=== PATIENT | female | born 1990 | race Caucasian/White ===

== ENCOUNTER 2020-02-18 10:48 | Emergency (ER) | payer OTHER, SELFPAY ==
[2020-02-18 10:50] VITALS: BP 138/91; PULSE 97; RESP 14; TEMP 36.9; O2SAT 98; BMI 34.5
--- NOTE | 2020-02-18 11:44 | ED.EXTPRO ---
HPI - Extremity Problem General Chief complaint: Extremity Problem,Nontraumatic Stated complaint: rt leg pain 1x week Time Seen by Provider: 02/18/20 11:44 Source: patient Mode of arrival: Ambulatory Limitations: no limitations History of Present Illness HPI Narrative: Patient is a 29-year-old female with no medical history presenting with right anterior leg pain. She says that she runs 3-5 miles on a regular basis last week she noticed she was having some lewis pain. She said it did not feel like her regular lewis splints. She has been resting icing and taking ibuprofen however it still feels some intermittent pain. She has no calf pain she has no redness or swelling. No shortness of breath. No prior history of DVT. She is concerned that she may have a blood clot. He has not had any recent travel head does not take any control. She did not change any shoes or running root MD Complaint: extremity pain Related Data Allergies Allergy/AdvReac Type Severity Reaction Status Date / Time No Known Drug Allergies Allergy Verified 02/18/20 10:54 Review of Systems Review of Systems Narrative: GENERAL: Denies chills,fever HEENT: Denies throat pain RESPIRATORY: Denies dyspnea, cough, wheezing CARDIOVASCULAR: Denies chest pain, palpitations GASTROINTESTINAL: Denies nausea, vomiting MUSCULOSKELETAL: See HPI SKIN: No rash, no laceration, no pruritus NEUROLOGIC: Denies weakness, dizziness, headache, numbness 8 point review of systems is negative except for those stated above and HPI Patient History Social History Smoking Status: Unknown if ever smoked Smoking Status: Unknown if ever smoked alcohol intake frequency: holidays/special occasions only Substance Use Type: does not use Exam Initial Vital Signs Initial Vital Signs: Vital Signs Temperature 98.5 F 02/18/20 10:50 Pulse Rate 97 H 02/18/20 10:50 Respiratory Rate 14 02/18/20 10:50 Blood Pressure 138/91 H 02/18/20 10:50 Pulse Oximetry 98 02/18/20 10:50 GENERAL: Well-appearing, well-nourished and in no acute distress. CARDIOVASCULAR: peripheral pulses in tact, cap refill <2 sec RESPIRATORY: No respiratory distress, speaks in full sentences without difficulty EXTREMITIES: Normal range of motion, no clubbing or edema. Neurovascularly intact No swelling mild tenderness over anterior tibia no erythema. No calf pain NEUROLOGICAL: Cranial nerves II through XII grossly intact. Normal gait and speech. SKIN: Warm, dry, no petechiae, no rashes or lesions. Course Vital Signs Vital signs: Vital Signs - 8 hr 02/18/20 10:50 02/18/20 12:12 Temperature 98.5 F Pulse Rate 97 H 59 L Respiratory Rate 14 18 Blood Pressure 138/91 H 133/77 Pulse Oximetry 98 97 MDM - Extremity (Nontraumatic) MDM Narrative Medical decision making narrative: At this time possible lewis splints versus muscle strain. No need for imaging or further testing Discharge Plan Departure Patient Disposition: Home Clinical Impression: Muscle strain of right lower extremity Qualifiers: Encounter type: initial encounter Qualified Code(s): S86.911A - Strain of unspecified muscle(s) and tendon(s) at lower leg level, right leg, initial encounter Discharge Date/Time: 02/18/20 12:14 Instructions: DI for Muscle Strain Activity Restrictions/Additional Instructions: *You have been diagnosed with right leg sprain *What to do: Continue to rest avoid running in till your leg feels better. Ice elevate *Continue to take medications as directed Ibuprofen 800 mg every 8 hours if needed for [id number] pain *Follow up with your primary care provider in 2-3 days *Return to ER if you should have increasing pain swelling or shortness of breath or any new, worsening or concerning symptoms
[2020-02-18 12:12] VITALS: BP 133/77; PULSE 59; RESP 18; O2SAT 97
== END 2020-02-18 12:14 | disposition home or self-care (01) ==
PROVIDERS: Emergency Provider Emergency Medicine
DX: S86.911A Strain of unspecified muscle(s) and tendon(s) at lower leg level, right leg, initial encounter (principal); Y93.02 Activity, running
CPT/HCPCS: 99281